=== PATIENT | male | born 1985 | race Caucasian/White ===

== ENCOUNTER → 2017-10-11 | Outpatient (CLI) | payer SELFPAY ==
--- NOTE | 2017-10-11 13:37 | Diagnostic Imaging Report ---
PROCEDURE: CT urinary tract, rule out kidney stone. TECHNIQUE: Multiple contiguous axial images were obtained through the abdomen and pelvis without the use of intravenous contrast. INDICATION: Vague abdominal pain. Calcium oxalate crystals in urine. Patient reports palpable mass in the right abdomen. COMPARISON: None. FINDINGS: A metal BB was placed at the right abdomen at the site of the reported palpable mass. The lung bases are clear. The heart is normal in size. There is no pericardial effusion. There is diffuse hepatic steatosis with no focal liver lesion seen. Fluid level in the gallbladder likely represents sludge. The spleen is unremarkable. The adrenal glands appear normal. The pancreas is unremarkable. No renal calculi are seen bilaterally. There is no hydronephrosis. No calculi are seen in the urinary bladder. The kidneys are otherwise unremarkable. The bowel loops are nondistended without evidence of obstruction. No free fluid or free air is seen. The appendix is normal. No acute osseous abnormality is seen. IMPRESSION: 1. No renal calculi. No hydronephrosis. 2. Hepatic steatosis. Gallbladder sludge. Dictated by: Dictated on workstation # [id number]
== END ==
LOC: RAD 12:45
PROVIDERS: ATTEND Nurse Practitioner Family
DX: K76.0 Fatty (change of) liver, not elsewhere classified (principal); R82.99 Other abnormal findings in urine; K83.9 Disease of biliary tract, unspecified
CPT/HCPCS: 74176

== ENCOUNTER 2022-03-18 03:38 | Observation (INO) | payer BC ==
[~2022-03-18] VITALS: Ht 180 cm; Wt 133.8 kg
[2022-03-18] MEDS ORDERED: ASPIRIN 81 MG CHEW (CHILDREN'S ASA) PO ONE (04:00)
[2022-03-18] MEDS ORDERED: dilTIAZem DRIP PRE-MIX 125 ML IV SCH ×2 (04:00→08:30)
[2022-03-18] MEDS ORDERED: NS IV 1000 ML 1,000 ML IV SCH (04:00)
[2022-03-18] MEDS ORDERED: ENOXAPARIN 100 MG/1 ML (LOVENOX) SYR SC ONE (04:00)
[2022-03-18 04:09] LABS: BASOPHILS # (AUTO) 0.1 10^3/uL (0.0-0.1); BASOPHILS % (AUTO) 1 % (0-10); EOSINOPHILS # (AUTO) 0.2 10^3/uL (0.0-0.3); EOSINOPHILS % (AUTO) 2 % (0-10); HEMATOCRIT 48 % (40-54); HEMOGLOBIN 16.3 g/dL (13.3-17.7); LYMPHOCYTES # (AUTO) 3.8 10^3/uL (1.0-4.0); LYMPHOCYTES % (AUTO) 45 % (12-44); MEAN CORPUSCULAR HEMOGLOBIN 30 pg (25-34); MEAN CORPUSCULAR HGB CONC 34 g/dL (32-36); MEAN CORPUSCULAR VOLUME 89 fL (80-99); MEAN PLATELET VOLUME 10.8 fL (9.0-12.2); MONOCYTES # (AUTO) 0.5 10^3/uL (0.0-1.0); MONOCYTES % (AUTO) 6 % (0-12); NEUTROPHILS # (AUTO) 3.9 10^3/uL (1.8-7.8); NEUTROPHILS % (AUTO) 47 % (42-75); PLATELET COUNT 187 10^3/uL (130-400); WHITE BLOOD COUNT 8.4 10^3/uL (4.3-11.0)
[2022-03-18] MEDS ORDERED: ENOXAPARIN 40 MG/0.4 ML (LOVENOX) SYR ONE (04:18)
[2022-03-18 04:30] LABS: ALANINE AMINOTRANSFERASE 30 U/L (0-55); ALBUMIN 4.5 GM/DL (3.2-4.5); ALKALINE PHOSPHATASE 72 U/L (40-136); BILIRUBIN,TOTAL 0.5 MG/DL (0.1-1.0); BUN/CREATININE RATIO 13; CALCIUM 9.5 MG/DL (8.5-10.1); CARBON DIOXIDE 22 MMOL/L (21-32); CHLORIDE 103 MMOL/L (98-107); CREATINE KINASE 97 U/L (30-200); CREATININE SERUM 0.98 MG/DL (0.60-1.30); GFR ESTIMATED 102; GLUCOSE 106 MG/DL (70-105); MAGNESIUM 1.4 MG/DL (1.6-2.4); POTASSIUM 3.6 MMOL/L (3.6-5.0); SODIUM 140 MMOL/L (135-145); TOTAL PROTEIN 7.3 GM/DL (6.4-8.2)
[2022-03-18] MEDS ORDERED: ENOXAPARIN 40 MG/0.4 ML (LOVENOX) SYR SC ONE (04:30)
[2022-03-18 04:38] LABS: FIBRIN DEGRADATION PRODUCTS 0.27 UG/ML (0.00-0.49); PROTHROMBIN TIME PATIENT 13.2 SEC (12.2-14.7)
[2022-03-18 04:49] LABS: CREATINE KINASE MB 1.1 NG/ML (<6.6); TSH (THYROID ANALYZER) 2.99 UIU/ML (0.35-4.94)
[2022-03-18 05:10] LABS: BILIRUBIN,URINE NEGATIVE (NEGATIVE); CLARITY,URINE CLEAR; COLOR,URINE YELLOW; GLUCOSE, URINE (UA) NEGATIVE (NEGATIVE); KETONES,URINE NEGATIVE (NEGATIVE); LEUKOCYTE ESTERASE ,URINE NEGATIVE (NEGATIVE); NITRITE,URINE NEGATIVE (NEGATIVE); PROTEIN,URINE NEGATIVE (NEGATIVE)
[2022-03-18 05:21] LABS: AMPHETAMINE SCREEN, URINE NEGATIVE (NEGATIVE); BENZODIAZEPINES SCREEN URINE NEGATIVE (NEGATIVE)
[2022-03-18 05:22] LABS: BARBITURATE SCREEN URINE NEGATIVE (NEGATIVE); CANNABINOID SCREEN, URINE NEGATIVE (NEGATIVE); COCAINE SCREEN URINE NEGATIVE (NEGATIVE); METHADONE STAT NEGATIVE (NEGATIVE); OPIATE SCREEN URINE NEGATIVE (NEGATIVE); OXYCODONE STAT NEGATIVE (NEGATIVE); PROPOXYPHENE STAT NEGATIVE (NEGATIVE); TRICYCLIC ANTIDEPRESSANTS SCRE NEGATIVE (NEGATIVE)
[2022-03-18] MEDS: MAGNESIUM 1 GM/100 ML IVPB 100 ML IV SCH ×2 (05:24→06:32)
[2022-03-18 05:26] LABS: BACTERIA,URINE NEGATIVE /HPF
[2022-03-18] MEDS ORDERED: diphenhydrAMINE 50 MG/ML INJ (BENADRYL) IVP PRN (06:00)
[2022-03-18] MEDS ORDERED: NS IV 500 ML 500 ML IV PRN (06:00)
[2022-03-18] MEDS ORDERED: ONDANSETRON 4 MG (ZOFRAN) ORAL DISSOLVE TAB PO PRN (06:00)
[2022-03-18] MEDS ORDERED: LACTULOSE SYRUP 10GM/15ML (ENULOSE) 30ML UDC PO PRN (06:00)
[2022-03-18] MEDS ORDERED: ANTACID SUSP 30 ML UDC (MYLANTA) PO PRN (06:00)
[2022-03-18] MEDS ORDERED: BISACODYL 10 MG SUPP (DULCOLAX) PR PRN (06:00)
[2022-03-18] MEDS ORDERED: polyethylene glycoL POWDER 17 GM (MIRALAX) PACK PO PRN (06:00)
[2022-03-18] MEDS ORDERED: MELATONIN 3 MG TABLET PO PRN (06:00)
[2022-03-18] MEDS ORDERED: diphenhydrAMINE 25 MG TAB (BENADRYL) PO PRN (06:00)
[2022-03-18] MEDS ORDERED: MILK OF MAGNESIA 400 MG/5 ML 30 ML UDC PO PRN (06:00)
[2022-03-18] MEDS ORDERED: ONDANSETRON 4 MG/2 ML (SDV) Z0FRAN IV PRN (06:00)
[2022-03-18] MEDS ORDERED: morphine INJ 4 MG/ML 1 ML (VIAL/SYRINGE) IV PRN (06:00)
[2022-03-18] MEDS ORDERED: ACETAMINOPHEN 325 MG TABLET PO PRN (06:00)
[2022-03-18] MEDS ORDERED: ALPRAZolam 0.5 MG (XANAX) TAB PO PRN (06:00)
--- NOTE | 2022-03-18 06:06 | ED Cardiac General ---
History of Present Illness General Chief Complaint: Cardiac/General Problems Stated Complaint: NEW ONSET AFIB WITH RVR Nursing Triage Note: Pt ambulates to ED9 with c/o waking up around 0300 with a fluttering sensation in chest. States he felt pulse in neck and noticed it was irregular. Denies chest pain/tightness/pressure or shortness of breath. Source: patient History of Present Illness Date Seen by Provider: Mar 18, 2022 Time Seen by Provider: 03:45 Initial Comments PT ARRIVES VIA POV FROM HOME STATES HE WOKE UP AT 0300 WITH FLUTTERING SENSATION IN HIS CHEST, CHECKED HIS PULSE AND HIS HEART BEAT WAS RAPID AND IRREGULAR. NO CHEST PAIN NO DIZZINESS NO SYNCOPE NO SWEATS NO SHORTNESS OF BREATH NO GI SYMPTOMS NO FEVER OR RECENT ILLNESS HAS HAD A COUPLE OF VERY BRIEF, SIMILAR EPISODES--NEVER SOUGHT CARE NO CHRONIC MEDICAL PROBLEMS, OTHER THAN STRESS/ANXIETY--TAKES PROZAC NO SMOKING, NO ALCOHOL OR DRUG USE. NO SIGNIFICANT CAFFEINE USE. PCP: DR. HOLDER AT [facility] Allergies and Home Medications Allergies Coded Allergies: No Known Drug Allergies (Unverified , 03/18/22) Patient Home Medication List Home Medication List Reviewed: Yes Review of Systems Review of Systems Constitutional: no symptoms reported EENTM: No Symptoms Reported Respiratory: No Symptoms Reported Cardiovascular: See HPI; Denies Chest Pain, Denies Edema; Irregular Heart Rate; Denies Lightheadedness; Palpitations; Denies Syncope Gastrointestinal: No Symptoms Reported Genitourinary: No Symptoms Reported Musculoskeletal: no symptoms reported Skin: no symptoms reported Psychiatric/Neurological: No Symptoms Reported Endocrine: No Symptoms Reported Hematologic/Lymphatic: No Symptoms Reported Past Jumzszl-Gxvuok-Xetvkq Hx Patient Social History Tobacco Use?: No Use of E-Cig and/or Vaping dev: No Substance use?: No Alcohol Use?: No Pt feels they are or have been: No Immunizations Up To Date Influenza Vaccine Up-to-Date: No; Not Current First/Initial COVID19 Vaccinat: Apr 2020 Second COVID19 Vaccination Issa: May 2020 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 oz. kg; 41.00 BMI Method: General Appearance: No Apparent Distress, WD/WN, Obese Neck: Normal Inspection Respiratory: Normal Breath Sounds, No Accessory Muscle Use, No Respiratory Distress Cardiovascular: No Edema, No JVD, No Murmur, Normal Peripheral Pulses, Irregularly Irregular, Tachycardia Gastrointestinal: Non Tender, Soft Extremity: Normal Inspection, Non Tender, No Calf Tenderness, No Pedal Edema Neurologic/Psychiatric: Alert, Oriented x3, No Motor/Sensory Deficits, Normal Mood/Affect, physician specialist II-XII Norm as Tested Skin: Normal Color, Warm/Dry Progress/Results/Core Measures Results/Orders Lab Results Laboratory Tests Test 03/18/22 03:55 03/18/22 04:46 Range/Units White Blood Count 8.4 4.3-11.0 10^3/uL Red Blood Count 5.41 4.30-5.52 10^6/uL Hemoglobin 16.3 13.3-17.7 g/dL Hematocrit 48 40-54 % Mean Corpuscular Volume 89 80-99 fL Mean Corpuscular Hemoglobin 30 25-34 pg Mean Corpuscular Hemoglobin Concent 34 32-36 g/dL Red Cell Distribution Width 12.2 10.0-14.5 % Platelet Count 187 130-400 10^3/uL Mean Platelet Volume 10.8 9.0-12.2 fL Immature Granulocyte % (Auto) 0 % Neutrophils (%) (Auto) 47 42-75 % Lymphocytes (%) (Auto) 45 H 12-44 % Monocytes (%) (Auto) 6 0-12 % Eosinophils (%) (Auto) 2 0-10 % Basophils (%) (Auto) 1 0-10 % Neutrophils # (Auto) 3.9 1.8-7.8 10^3/uL Lymphocytes # (Auto) 3.8 1.0-4.0 10^3/uL Monocytes # (Auto) 0.5 0.0-1.0 10^3/uL Eosinophils # (Auto) 0.2 0.0-0.3 10^3/uL Basophils # (Auto) 0.1 0.0-0.1 10^3/uL Immature Granulocyte # (Auto) 0.0 0.0-0.1 10^3/uL Prothrombin Time 13.2 12.2-14.7 SEC INR Comment 1.0 0.8-1.4 Activated Partial Thromboplast Time 38 H 24-35 SEC D-Dimer 0.27 0.00-0.49 UG/ML Sodium Level 140 135-145 MMOL/L Potassium Level 3.6 3.6-5.0 MMOL/L Chloride Level 103 98-107 MMOL/L Carbon Dioxide Level 22 21-32 MMOL/L Anion Gap 15 H 5-14 MMOL/L Blood Urea Nitrogen 13 7-18 MG/DL Creatinine 0.98 0.60-1.30 MG/DL Estimat Glomerular Filtration Rate 102 BUN/Creatinine Ratio 13 Glucose Level 106 H 70-105 MG/DL Calcium Level 9.5 8.5-10.1 MG/DL Corrected Calcium 9.1 8.5-10.1 MG/DL Magnesium Level 1.4 L 1.6-2.4 MG/DL Total Bilirubin 0.5 0.1-1.0 MG/DL Aspartate Amino Transf (AST/SGOT) 21 5-34 U/L Alanine Aminotransferase (ALT/SGPT) 30 0-55 U/L Alkaline Phosphatase 72 40-136 U/L Total Creatine Kinase 97 30-200 U/L Creatine Kinase MB 1.1 <6.6 NG/ML Myoglobin 31.4 10.0-92.0 NG/ML Troponin I < 0.028 <0.028 NG/ML B-Type Natriuretic Peptide 29.4 <100.0 PG/ML Total Protein 7.3 6.4-8.2 GM/DL Albumin 4.5 3.2-4.5 GM/DL TSH [place] Testing 2.99 0.35-4.94 UIU/ML Serum Alcohol < 10 <10 MG/DL Urine Color YELLOW Urine Clarity CLEAR Urine pH 5.0 5-9 Urine Specific [place] 1.010 L 1.016-1.022 Urine Protein NEGATIVE NEGATIVE Urine Glucose (UA) NEGATIVE NEGATIVE Urine Ketones NEGATIVE NEGATIVE Urine Nitrite NEGATIVE NEGATIVE Urine Bilirubin NEGATIVE NEGATIVE Urine Urobilinogen 0.2 < = 1.0 MG/DL Urine Leukocyte Esterase NEGATIVE NEGATIVE Urine RBC (Auto) NEGATIVE NEGATIVE Urine RBC NONE /HPF Urine WBC NONE /HPF Urine Crystals NONE /LPF Urine Bacteria NEGATIVE /HPF Urine Casts NONE /LPF Urine Mucus NEGATIVE /LPF Urine Culture Indicated NO Urine Opiates Screen NEGATIVE NEGATIVE Urine Oxycodone Screen NEGATIVE NEGATIVE Urine Methadone Screen NEGATIVE NEGATIVE Urine Propoxyphene Screen NEGATIVE NEGATIVE Urine Barbiturates Screen NEGATIVE NEGATIVE Ur Tricyclic Antidepressants Screen NEGATIVE NEGATIVE Urine Phencyclidine Screen NEGATIVE NEGATIVE Urine Amphetamines Screen NEGATIVE NEGATIVE Urine Methamphetamines Screen NEGATIVE NEGATIVE Urine Benzodiazepines Screen NEGATIVE NEGATIVE Urine Cocaine Screen NEGATIVE NEGATIVE Urine Cannabinoids Screen NEGATIVE NEGATIVE My Orders Orders - BRADLEY NIXON DO Ed Iv/Invasive Line Start (03/18/22 03:54) Ekg Tracing (03/18/22 03:54) O2 (03/18/22 03:54) Monitor-Rhythm Ecg Trace Only (03/18/22 03:54) Alcohol (03/18/22 03:54) Bnp Bhavesh (03/18/22 03:54) Cbc With Automated Diff (03/18/22 03:54) Comprehensive Metabolic Panel (03/18/22 03:54) Creatine Kinase (03/18/22 03:54) Creatine Kinase Mb (03/18/22 03:54) Fibrin Degradation Products (03/18/22 03:54) Drug Screen Stat (Urine) (03/18/22 03:54) Magnesium (03/18/22 03:54) Protime With Inr (03/18/22 03:54) Partial Thromboplastin Time (03/18/22 03:54) Thyroid Analyzer (03/18/22 03:54) Ua Culture If Indicated (03/18/22 03:54) Myoglobin Serum (03/18/22 03:54) Troponin I Bhavesh (03/18/22 03:54) Chest 1 View, Ap/Pa Only (03/18/22 03:54) Ed Iv/Invasive Line Start (03/18/22 03:54) Ns Iv 1000 Ml (Sodium Chloride 0.9%) (03/18/22 04:00) Aspirin Chewable Tablet (Baby Aspirin Ch (03/18/22 04:00) Enoxaparin Injection (Lovenox Injection) (03/18/22 04:00) Diltiazem Drip Pre-Mix (Cardizem Drip Pr (03/18/22 04:00) Diltiazem Injection (Cardizem Injection) (03/18/22 04:00) Enoxaparin Injection (Lovenox Injection) (03/18/22 04:30) Enoxaparin Injection (Lovenox Injection) (03/18/22 04:18) Ekg Tracing (03/18/22 04:34) Magnesium 1 Gm/100 Ml Ivpb (Magnesium Bertrand (03/18/22 05:30) Ed Admission (Communication) (03/18/22 05:44) Medications Given in ED Current Medications Medications Dose Ordered Sig/Brea Route Start Time Stop Time Status Last Admin Dose Admin Aspirin 324 mg ONCE ONCE PO 03/18/22 04:00 03/18/22 04:02 DC 03/18/22 04:10 324 MG Diltiazem HCl 20 mg ONCE ONCE IVP 03/18/22 04:00 03/18/22 04:02 DC 03/18/22 04:08 20 MG Enoxaparin Sodium 40 mg ONCE ONCE SC 03/18/22 04:30 03/18/22 04:31 DC 03/18/22 04:19 40 MG Enoxaparin Sodium 100 mg ONCE ONCE SC 03/18/22 04:00 03/18/22 04:02 DC 03/18/22 04:19 100 MG Vital Signs/I&O 03/18/22 03/18/22 03/18/22 03/18/22 03:43 04:08 04:09 04:13 Temp 36.1 Pulse 113 133 133 Resp 18 B/P (MAP) 137/95 (109) 143/113 143/113 Pulse Ox 100 100 O2 Delivery Room Air Nasal Cannula O2 Flow Rate 2.00 Blood Pressure Mean: 123 Progress Progress Note : Progress Note GIVEN: -ASPIRIN -LOVENOX -CARDIZEM BOLUS + DRIP -MAGNESIUM HR DOWN TO 90'S, BUT STILL IN ATRIAL FIBRILLATION OTHER VITALS STABLE NO DETERIORATION IN PT'S CONDITION DURING ER STAY Initial ECG Impression Date: Mar 18, 2022 Initial ECG Impression Time: 04:04 Initial ECG Rate: 110 Initial ECG Rhythm: A Fib/Flutter Initial ECG Impression: Nonspecific Changes, Atrial Fibrillation w/RVR Initial ECG Comparisson: No Previous ECG Available EKG : EKG Time: 04:15 Rate: 96 Rhythm: A Fib/Flutter ECG Impression: Nonspecific Changes Diagnostic Imaging Comments CXR--NO ACUTE PROCESS, PENDING RADIOLOGIST REVIEW Reviewed: Reviewed by Me Critical Care Note Critical Care Start Time: 03:45 Total Time (minutes) 30 Departure Communication (Admissions) 0535--PAGING DR. CLEMENTS, DRILLING SUPERINTENDENT CAP AND STUD MACHINE OPERATOR. 0540--ATTEMPTING TO CONTACT DR. CLEMENTS, MESSAGE LEFT ON CELL 0542--SPOKE WITH DR. MADDEN, HOSPITALIST FOR [facility]. ACCEPTS PT FOR ADMIT. SHE WILL DO ADMIT ORDERS. 0600--REPORT TO E-ICU PHYSICIAN. Impression Primary Impression: New onset atrial fibrillation Additional Impressions: Atrial fibrillation with rapid ventricular response Hypomagnesemia Disposition: ADMITTED INPATIENT Condition: Improved Admissions Decision to Admit Reason: Admit from ER (General) Decision to Admit/Date: Mar 18, 2022 Time/Decision to Admit Time: 05:45 Departure-Patient Inst. Referrals: DARIO HOLDER DO (PCP) Primary Care Physician BRADLEY NIXON DO Mar 18, 2022 06:06
--- NOTE | 2022-03-18 06:06 | Tele-ICU Consult ---
History of Present Illness History of Present Illness Date Seen by Provider: Mar 18, 2022 Time Seen by Provider: 06:01 History of Present Illness 36 yo M new onset of a fib with RVR, V rate is 140's, no risk factors, no EtOH, drugs, Started on IV Cardizem, rate is now 90-100, may have had shorter episodes in past No SOB, CP Pt is obese with Hb of 16.3 Allergies and Home Medications Allergies Coded Allergies: No Known Drug Allergies (Unverified , 03/18/22) Past Medical/Social/Family Hx Patient Social History Tobacco Use?: No Use of E-Cig and/or Vaping dev: No Substance use?: No Alcohol Use?: No Pt stated abuse/neglect: No Immunizations Up To Date Influenza Vaccine Up-to-Date: No; Not Current First/Initial COVID19 Vaccinat: Apr 2020 Second COVID19 Vaccination Issa: May 2020 Current Status Advance Directives: No Communicates: Verbally Primary Language: Nigerien Preferred Spoken Language: Nigerien Is interpretation needed?: No Review of Systems Constitutional: see HPI EENTM: see HPI Respiratory: see HPI Cardiovascular: palpitations Gastrointestinal: see HPI Genitourinary: see HPI Musculoskeletal: see HPI Skin: see HPI Psychiatric/Neurological: See HPI Focused Exam Height, Weight, BMI Height: '" Weight: lbs. oz. kg; 41.00 BMI Method: Exam Exam Patient acknowledged, consented, and participated in this virtual visit which was conducted using real time audio/video Vital Signs Date Time Temp Pulse Resp B/P (MAP) Pulse Ox O2 Delivery O2 Flow Rate FiO2 03/18/22 04:13 100 Nasal Cannula 2.00 03/18/22 04:09 133 143/113 03/18/22 04:08 133 143/113 03/18/22 03:43 36.1 113 18 137/95 (109) 100 Room Air I & O 03/18/22 07:00 Intake Total 1000 ml Balance 1000 ml Height & Weight Height: '" Weight: lbs. oz. kg; 41.00 BMI Method: General Appearance: No Apparent Distress, WD/WN Respiratory: Chest Non Tender, Lungs Clear Cardiovascular: Irregularly Irregular, Tachycardia Gastrointestinal: normal bowel sounds, non tender Neurologic/Psychiatric: Alert Results Lab Laboratory Tests 03/18/22 03:55 Assessment/Plan Assessment/Plan new onset of a fib with RVR, responding to IV Cardizem with obesity and polycythemia would work up as OP for ANITA check TSH and T4 Critical Care: Critically Ill Patient Time spent with patient (mins): 20 DAVID DUARTE MD Mar 18, 2022 06:06
--- NOTE | 2022-03-18 06:08 | History & Physical-Hospitalist ---
History of Present Illness HPI/Chief Complaint Chief complaint: New onset atrial fibrillation with rapid ventricular response HPI: This is a 36-year-old male who has a past medical history of depression and GERD who presented to the ER with palpitations and slight shortness of breath who was found to have new onset atrial fibrillation with rapid ventricular response. Cardizem drip was started and 4 hours later he converted to normal sinus rhythm currently. He reports some palpitations in the past but resolved quickly. He denies any heart issues and he is a lifetime non-smoker nondrinker. He works for [employer] for the past 2-1/2 years. He appears to have risk factors for sleep apnea including neck circumference and BMI of 41 and he is never had a sleep study but he is often wondered due to dry mouth when he wakes up on occasion. His is at the bedside and does not recall any type of apnea symptoms. I counseled him on the need to pursue outpatient sleep study discussed with PCP Dr. Lakhani. Source: patient, family, RN/MD Exam Limitations: no limitations Date Seen 03/18/22 Time Seen by a Provider: 11:00 Attending Physician Sj Lakhani DO PCP Admitting Physician: Pauline Braswell DO Attending Physician: Pauline Braswell DO Referring Physician Date of Admission Mar 18, 2022 at 05:45 Home Medications & Allergies Home Medications Reviewed patient Home Medication Reconciliation performed by pharmacy medication reconciliations test technician and/or nursing. Patients Allergies have been reviewed. Allergies Allergies Coded Allergies No Known Drug Allergies ([id number]/27/22) Past Yuvaair-Cqgjbp-Zsqeuz Hx Patient Social History Marrital Status: Employed/Student: employed Tobacco Use?: No Smoking Status: Never a Smoker Use of E-Cig and/or Vaping dev: No Substance use?: No Alcohol Use?: No Pt feels they are or have been: No Immunizations Up To Date First/Initial COVID19 Vaccinat: Apr 2020 Second COVID19 Vaccination Isas: May 2020 Current Status Advance Directives: No Communicates: Verbally Primary Language: Turkish Preferred Spoken Language: Turkish Is interpretation needed?: No Past Medical History Gastroesophageal Reflux Depression Review of Systems Constitutional: see HPI Respiratory: dyspnea on exertion Cardiovascular: chest pain, palpitations Physical Exam Physical Exam Vital Signs Vital Signs - First Documented 03/18/22 03/18/22 03:43 04:13 Temp 36.1 Pulse 113 Resp 18 B/P (MAP) 137/95 (109) Pulse Ox 100 O2 Delivery Room Air O2 Flow Rate 2.00 Capillary Refill : Height, Weight, BMI Height: '" Weight: lbs. oz. kg; 41.00 BMI Method: General Appearance: No Apparent Distress, Obese Eyes: Right Eye Normal Inspection, Right Eye PERRL HEENT: PERRL/EOMI, TMs Normal, Normal ENT Inspection, Pharynx Normal, Moist Mucous Membranes Neck: Full Range of Motion, Normal Inspection, Non Tender Respiratory: Chest Non Tender, Lungs Clear, Normal Breath Sounds, No Accessory Muscle Use, No Respiratory Distress Cardiovascular: Regular Rate, Rhythm, No Edema, No Gallop, No JVD, No Murmur, Normal Peripheral Pulses Gastrointestinal: Normal Bowel Sounds, No Organomegaly, No Pulsatile Mass, Non Tender, Soft Back: Normal Inspection, No CVA Tenderness, No Vertebral Tenderness Extremity: Normal Capillary Refill, Normal Inspection, Normal Range of Motion, Non Tender, No Calf Tenderness, No Pedal Edema Neurologic/Psychiatric: Alert, Oriented x3, No Motor/Sensory Deficits, Normal Mood/Affect Skin: Normal Color, Warm/Dry Lymphatic: No Adenopathy Results Results/Procedures Labs Laboratory Tests 03/18/22 03:55 Patient resulted labs reviewed. Assessment/Plan Admission Diagnosis Assessment: New onset atrial fibrillation with right ventricular response Depression GERD Suspicion for ANITA never had a sleep study Plan: Await cardiology plan Needs sleep study outpatient Admission Status: Observation Diagnosis/Problems Diagnosis/Problems (1) New onset atrial fibrillation Status: Acute (2) Atrial fibrillation with rapid ventricular response PAULINE BRASWELL DO Mar 18, 2022 06:08
[2022-03-18] MEDS: NS IV 1000 ML 1,000 ML IV SCH ×2 (06:32→14:10)
[2022-03-18] MEDS ORDERED: FLU QUADRIvalent (6 months+) 60 mcg/0.5 ml 2022-23 (Fluzone) IM ONE (07:00)
[2022-03-18 07:17] VITALS: BP 123/86
--- NOTE | 2022-03-18 07:49 | Diagnostic Imaging Report ---
EXAMINATION: Chest 1 view HISTORY: PALPITATIONS COMPARISON: None available. FINDINGS: Heart size and pulmonary vasculature are normal. The lungs are clear without consolidation, pleural effusion, or pneumothorax. The osseous structures are intact. IMPRESSION: 1. No acute radiographic abnormality in the chest. Dictated by: Dictated on workstation # [id number]
[2022-03-18 08:30] VITALS: BP 114/94
[2022-03-18] MEDS ORDERED: CALCIUM CARBONATE 500 MG (TUMS) TAB.CHEW PO PRN (08:30)
[2022-03-18] MEDS ORDERED: SENNOSIDES 8.6 MG (SENOKOT) TAB PO SCH (09:00)
[2022-03-18] MEDS ORDERED: DOCUSATE SODIUM 100 MG (COLACE) CAP PO SCH (09:00)
[2022-03-18] MEDS ORDERED: meTOprolol SUCCINATE 100 MG (TOPROL XL) TAB PO ONE (13:30)
--- NOTE | 2022-03-18 14:15 | Consultation-Cardiology ---
HPI-Cardiology Cardiology Consultation: Date of Consultation 03/18/22 Time Seen by a Provider: 13:00 Date of Admission Attending Physician Sj Lakhani DO Admitting Physician Admitting Physician: Pauline Braswell DO Attending Physician: Pauline Braswell DO Consulting Physician TIFFANIE CLEMENTS MD, MA, FACP, FACC, FSCAI, CCDS Physician requesting consult: Dr Braswell HPI: Chief Complaint: Reason for Card consult: PAF with RVR 36 yo man won awoke suddenly with a feeling of palp (rapid, irreg heart beat). Has had two other episodes that have been similar but shorter. The last episode prior to the one he presented with was several months ago. Today, he was diagnosed with PAF w/ RVR and hospitalized to Dr Braswell's service. About 3 hours later, he spontaneously converted to NSR and has since been feeling better. He denies cp or syncope or shortness of breath or swelling. Review of Systems-Cardiology Review of Systems Constitutional: No weight loss, No weight gain Eyes: No vision change Ears/Nose/Throat: No ear discharge, No nasal drainage, No recent hearing loss Respiratory: As described under HPI Cardiovascular: As described under HPI Gastrointestinal: No diarrhea, No nausea, No vomiting Genitourinary: No dysuria, No hematuria, No urine frequency changes Musculoskeletal: No back pain, No joint pain Skin: No rash, No ulcerations Psychiatric/Neurological: No seizure, No focal weakness, No syncope Hematologic: No bleeding abnormalities [id number] Hx Patient Social History Marrital Status: Employed/Student: employed Smoking Status: Never a Smoker Have you traveled recently?: No Alcohol Use?: No Pt feels they are or have been: No Past Medical History PMH As described under Assessment. Family Medical History Family Medical History: He does not report fam h/o early CAD or SCD Allergies and Home Medications Allergies Coded Allergies: No Known Drug Allergies (Unverified , 03/18/22) Patient Home Medication List Home Medication List Reviewed: Yes Physical Exam-Cardiology Physical Exam Vital Signs/I&O 03/18/22 03/18/22 03/18/22 03/18/22 03:43 04:08 04:09 04:13 Temp 36.1 Pulse 113 133 133 Resp 18 B/P (MAP) 137/95 (109) 143/113 143/113 Pulse Ox 100 100 O2 Delivery Room Air Nasal Cannula O2 Flow Rate 2.00 03/18/22 03/18/22 03/18/22 03/18/22 06:04 06:15 06:17 06:30 Temp 36.1 35.6 Pulse 75 83 81 81 Resp 18 14 21 B/P (MAP) 127/91 141/104 (116) 130/92 (105) Pulse Ox 100 96 95 O2 Delivery Nasal Cannula Room Air Room Air O2 Flow Rate 2.00 2.00 03/18/22 03/18/22 03/18/22 03/18/22 06:45 06:55 07:00 07:00 Pulse 83 88 84 Resp 12 11 B/P (MAP) 123/86 (98) 117/84 (95) Pulse Ox 96 96 97 O2 Delivery Room Air Room Air Room Air 03/18/22 03/18/22 03/18/22 03/18/22 07:17 07:30 08:00 08:00 Temp 35.6 36.2 Pulse 83 78 Resp 9 B/P (MAP) 121/90 (100) Pulse Ox 96 98 100 O2 Delivery Room Air Room Air 03/18/22 03/18/22 03/18/22 03/18/22 08:30 09:00 09:26 10:00 Pulse 83 83 105 77 Resp 10 7 B/P (MAP) 114/94 114/94 (101) 138/90 (106) Pulse Ox 98 97 O2 Delivery Room Air Room Air 03/18/22 03/18/22 03/18/22 03/18/22 11:00 11:57 12:00 12:00 Temp 36.3 Pulse 62 64 Resp 23 B/P (MAP) 129/91 (104) 112/82 (92) Pulse Ox 98 97 98 O2 Delivery Room Air Room Air Room Air 03/18/22 03/18/22 13:00 13:00 Pulse 76 57 Resp 15 B/P (MAP) 142/97 (112) Pulse Ox 97 O2 Delivery Room Air Capillary Refill : Constitutional: AAO x 3, well-developed, well-nourished HEENT: EOMI, hearing is well preserved; No xanthelasmas are seen Neck: carotid pulses are 2 + bilaterally, with good upstrokes Respiratory: No accessory muscle use; other (good, bilat air entry) Cardiovascular: regular rate-rhythm, S1 and S2, systolic murmur (faint CYNDI at card base) Gastrointestinal: No tender; soft; No guarding; audible bowel sounds Extremities: No clubbing, No cyanosis, No significant edema Neurologic/Psychiatric: other (moves all limbs equally) Skin: No rash on exposed areas, No ulcerations on exposed areas Data Review Labs Laboratory Tests 03/18/22 03:55: White Blood Count 8.4, Red Blood Count 5.41, Hemoglobin 16.3, Hematocrit 48, Mean Corpuscular Volume 89, Mean Corpuscular Hemoglobin 30, Mean Corpuscular Hemoglobin Concent 34, Red Cell Distribution Width 12.2, Platelet Count 187, Mean Platelet Volume 10.8, Immature Granulocyte % (Auto) 0, Neutrophils (%) (Auto) 47, Lymphocytes (%) (Auto) 45H, Monocytes (%) (Auto) 6, Eosinophils (%) (Auto) 2, Basophils (%) (Auto) 1, Neutrophils # (Auto) 3.9, Lymphocytes # (Auto) 3.8, Monocytes # (Auto) 0.5, Eosinophils # (Auto) 0.2, Basophils # (Auto) 0.1, Immature Granulocyte # (Auto) 0.0, Prothrombin Time 13.2, INR Comment 1.0, Activated Partial Thromboplast Time 38H, D-Dimer 0.27, Sodium Level 140, Potassium Level 3.6, Chloride Level 103, Carbon Dioxide Level 22, Anion Gap 15H, Blood Urea Nitrogen 13, Creatinine 0.98, Estimat Glomerular Filtration Rate 102, BUN/Creatinine Ratio 13, Glucose Level 106H, Calcium Level 9.5, Corrected Calcium 9.1, Magnesium Level 1.4L, Total Bilirubin 0.5, Aspartate Amino Transf (AST/SGOT) 21, Alanine Aminotransferase (ALT/SGPT) 30, Alkaline Phosphatase 72, Total Creatine Kinase 97, Creatine Kinase MB 1.1, Myoglobin 31.4, Troponin I < 0.028, B-Type Natriuretic Peptide 29.4, Total Protein 7.3, Albumin 4.5, TSH [facility] Testing 2.99, Serum Alcohol < 10 03/18/22 04:46: Urine Color YELLOW, Urine Clarity CLEAR, Urine pH 5.0, Urine Specific [place] 1.010L, Urine Protein NEGATIVE, Urine Glucose (UA) NEGATIVE, Urine Ketones NEGATIVE, Urine Nitrite NEGATIVE, Urine Bilirubin NEGATIVE, Urine Urobilinogen 0.2, Urine Leukocyte Esterase NEGATIVE, Urine RBC (Auto) NEGATIVE, Urine RBC NONE, Urine WBC NONE, Urine Crystals NONE, Urine Bacteria NEGATIVE, Urine Casts NONE, Urine Mucus NEGATIVE, Urine Culture Indicated NO, Urine Opiates Screen NEGATIVE, Urine Oxycodone Screen NEGATIVE, Urine Methadone Screen NEGATIVE, Urine Propoxyphene Screen NEGATIVE, Urine Barbiturates Screen NEGATIVE, Ur Tricy clic Antidepressants Screen NEGATIVE, Urine Phencyclidine Screen NEGATIVE, Urine Amphetamines Screen NEGATIVE, Urine Methamphetamines Screen NEGATIVE, Urine Benzodiazepines Screen NEGATIVE, Urine Cocaine Screen NEGATIVE, Urine Cannabinoids Screen NEGATIVE 03/18/22 13:50: Laboratory Tests 03/18/22 03:55 A/P-Cardiology Assessment/Admission Diagnosis PAF, first diagnosed on 03/18/22 - TSH normal on 03/18/22 - CHADSVASc score 0 Suspected ANITA Discussion and Recomendations * Beta-deyanira for rate control * Aspirin for stroke prophylaxis (given CHADSVASc score of zero) * Outpt sleep studies advised * Outpt cardiac f/u advised TIFFANIE CLEMENTS MD FACP FAC CCDS Mar 18, 2022 14:15
[2022-03-18] MEDS ORDERED: MTP100TCR PO (15:03)
[2022-03-18] MEDS ORDERED: ASPI325T32 PO (15:03)
--- NOTE | 2022-03-18 15:04 | Discharge Summary ---
Discharge Summary Hospital Course Was the Problem List Reviewed?: Yes Problems/Dx: (1) New onset atrial fibrillation Status: Acute (2) Atrial fibrillation with rapid ventricular response Hospital Course Date of Admission: Mar 18, 2022 at 05:45 Admission Diagnosis : Family Physician/Provider: Sj Lakhani DO Date of Discharge: 03/18/22 Discharge Diagnosis: [ ] Hospital Course: short course after admitted to ICU for new onset AF RVR requiring Cardizem drip which caused reverting back to NSR. Dr Zapata assessed the patient to be ready for DC and he was DC with ASA 325mg and Metoprolol but he needs sleep study. Labs and Pending Lab Test: Laboratory Tests 03/18/22 03:55: White Blood Count 8.4, Red Blood Count 5.41, Hemoglobin 16.3, Hematocrit 48, Mean Corpuscular Volume 89, Mean Corpuscular Hemoglobin 30, Mean Corpuscular Hemoglobin Concent 34, Red Cell Distribution Width 12.2, Platelet Count 187, Mean Platelet Volume 10.8, Immature Granulocyte % (Auto) 0, Neutrophils (%) (Auto) 47, Lymphocytes (%) (Auto) 45H, Monocytes (%) (Auto) 6, Eosinophils (%) (Auto) 2, Basophils (%) (Auto) 1, Neutrophils # (Auto) 3.9, Lymphocytes # (Auto) 3.8, Monocytes # (Auto) 0.5, Eosinophils # (Auto) 0.2, Basophils # (Auto) 0.1, Immature Granulocyte # (Auto) 0.0, Prothrombin Time 13.2, INR Comment 1.0, Activated Partial Thromboplast Time 38H, D-Dimer 0.27, Sodium Level 140, Potassium Level 3.6, Chloride Level 103, Carbon Dioxide Level 22, Anion Gap 15H, Blood Urea Nitrogen 13, Creatinine 0.98, Estimat Glomerular Filtration Rate 102, BUN/Creatinine Ratio 13, Glucose Level 106H, Calcium Level 9.5, Corrected Calcium 9.1, Magnesium Level 1.4L, Total Bilirubin 0.5, Aspartate Amino Transf (AST/SGOT) 21, Alanine Aminotransferase (ALT/SGPT) 30, Alkaline Phosphatase 72, Total Creatine Kinase 97, Creatine Kinase MB 1.1, Myoglobin 31.4, Troponin I < 0.028, B-Type Natriuretic Peptide 29.4, Total Protein 7.3, Albumin 4.5, TSH [place] Testing 2.99, Serum Alcohol < 10 03/18/22 04:46: Urine Color YELLOW, Urine Clarity CLEAR, Urine pH 5.0, Urine Specific [place] 1 .010L, Urine Protein NEGATIVE, Urine Glucose (UA) NEGATIVE, Urine Ketones NEGATIVE, Urine Nitrite NEGATIVE, Urine Bilirubin NEGATIVE, Urine Urobilinogen 0.2, Urine Leukocyte Esterase NEGATIVE, Urine RBC (Auto) NEGATIVE, Urine RBC NONE, Urine WBC NONE, Urine Crystals NONE, Urine Bacteria NEGATIVE, Urine Casts NONE, Urine Mucus NEGATIVE, Urine Culture Indicated NO, Urine Opiates Screen NEGATIVE, Urine Oxycodone Screen NEGATIVE, Urine Methadone Screen NEGATIVE, Urine Propoxyphene Screen NEGATIVE, Urine Barbiturates Screen NEGATIVE, Ur Tricyclic Antidepressants Screen NEGATIVE, Urine Phencyclidine Screen NEGATIVE, Urine Amphetamines Screen NEGATIVE, Urine Methamphetamines Screen NEGATIVE, Urine Benzodiazepines Screen NEGATIVE, Urine Cocaine Screen NEGATIVE, Urine Cannabinoids Screen NEGATIVE 03/18/22 13:50: Troponin I < 0.028 Home Meds Active Aspirin EC (Aspirin) 325 Mg Tablet.dr 325 Mg PO DAILY Metoprolol Succinate 100 Mg Tab.er.24h 100 Mg PO DAILY Assessment/Pt Instructions PCP 1 week, needs sleep study Discharge Planning: <30 minutes discharge planning Discharge Physical Examination Vital Signs Vital Signs Date Time Temp Pulse Resp B/P (MAP) Pulse Ox O2 Delivery O2 Flow Rate FiO2 03/18/22 14:00 61 20 130/97 (108) 97 Room Air 03/18/22 11:57 36.3 03/18/22 06:04 2.00 2.00 General Appearance: No Apparent Distress, WD/WN Allergies: Coded Allergies: No Known Drug Allergies (Unverified , 03/18/22) Discharge Summary Date of Admission Mar 18, 2022 at 05:45 Date of Discharge Discharge Date: Mar 18, 2022 Admission Diagnosis Assessment: New onset atrial fibrillation with right ventricular response Depression GERD Suspicion for ANITA never had a sleep study Plan: Await cardiology plan Needs sleep study outpatient Discharge Diagnosis (1) New onset atrial fibrillation Status: Acute (2) Atrial fibrillation with rapid ventricular response WILMA MADDEN DO Mar 18, 2022 15:03
[2022-03-18] MEDS ORDERED: APIXABAN 5 MG (ELIQUIS) TABLET PO SCH (21:00)
[2022-03-19] MEDS ORDERED: MAGNESIUM 1 GM/100 ML IVPB 100 ML IV SCH (06:00)
[2022-03-19] MEDS ORDERED: KCL 20 MEQ TAB (K-DUR) PO SCH (06:00)
[2022-03-19] MEDS ORDERED: POTASSIUM CL 10MEQ/50ML IVPB 50 ML IV SCH (06:00)
[2022-03-19] MEDS ORDERED: meTOprolol SUCCINATE 100 MG (TOPROL XL) TAB PO SCH (09:00)
== END 2022-03-18 15:00 | disposition home or self-care (01) ==
LOC: EDUNIT# 03:38 → ER 03:41 → UNDOADMOB 05:45 → ICU 05:45 → INTOOBSV 05:45 → ICU 06:58 → UNDODISOB 15:10
PROVIDERS: ADMIT Internal Medicine; ATTEND Internal Medicine
DX: I48.91 Unspecified atrial fibrillation (principal); F32.A Depression, unspecified; K21.9 Gastro-esophageal reflux disease without esophagitis
CPT/HCPCS: 71045; 80053; 80306; 81000; 82550; 82553; 83735; 83874; 83880; 84443; 84484; 85025; 85379; 85610; 85730; 87081; 93005; 93041; 96376; 99284; C8929; G0378; G0480; 36415; 80320; 93306

== ENCOUNTER → 2022-09-11 | Outpatient (CLI) | payer BC ==
[~2022-09-11] MED LIST: ASPI325T32 PO; CATHETER FLUSH 10 ML SYR IVP PRN; MTP100TCR PO
[2022-09-11 08:54] VITALS: BP 121/66
--- NOTE | 2022-09-12 19:34 | STRESS TEST ---
DATE OF SERVICE: 09/11/2022 RESTING AND POST EXERCISE TECHNETIUM-99M TETROFOSMIN SPECT CT IMAGING ORDERING PHYSICIAN: Linda Quigley APRN PRIMARY PHYSICIAN: Dr. Sj Lakhani. CLINICAL DIAGNOSIS: Paroxysmal atrial fibrillation. Baseline images were carried out after injection of 10.48 mCi of technetium-99m tetrofosmin. This was followed by exercise on a treadmill. Darci protocol was employed. Heart rate and blood pressure responses to exercise were appropriate. There was significant baseline artifact with exercise and the study is not adequate for ST segment analysis. When the patient had attained 85% of maximum predicted heart rate, 32.5 mCi of technetium-99m Tetrofosmin were injected and the exercise was continued for another minute. The test was stopped on account of fatigue. The patient attained 87% of maximum predicted heart rate and 12.1 METs of workload. Review of images at rest and following stress does not indicate any distinct perfusion defects consistent with significant myocardial ischemia or infarction. Gated images show normal global left ventricular systolic function with normal regional wall motion. Left ventricular ejection fraction is calculated to be 63%. Left ventricular end diastolic volume is 110 mL. TID is absent (0.81). CONCLUSIONS: 1. No evidence of any significant myocardial ischemia or infarction on this study. 2. Normal regional wall motion. 3. Normal global left ventricular systolic function with a calculated ejection fraction 63%. 4. Mild cardiomegaly. Job ID: [id number] DocumentID: [id number] Dictated Date: 09/12/2022 17:32:02 Track Broom Operator Date: 09/12/2022 19:32:00 Dictated By: TIFFANIE CLEMENTS MD; JUDAH; FACP; FACC;
== END ==
LOC: CARD 07:11
PROVIDERS: ATTEND Nurse Practitioner Family
DX: I48.0 Paroxysmal atrial fibrillation (principal)
CPT/HCPCS: 78452; 93017; A9502